=== PATIENT | male | born 1960 | race Caucasian/White ===

== ENCOUNTER 2020-03-11 07:49 | Outpatient (REF) | payer MEDICARE, MEDICAID, SELFPAY | END 2020-03-11 07:50 | disposition home or self-care (01) | LOC: HO.HAP 07:49 | PROVIDERS: PCP Internal Medicine; Referring Provider Internal Medicine; Visit Provider Internal Medicine | DX: H90.3 Sensorineural hearing loss, bilateral (principal) | CPT/HCPCS: 92593; 99499; V5266 ==

== ENCOUNTER 2020-07-09 08:19 | Outpatient (REF) | payer MEDICARE, MEDICAID, SELFPAY ==
--- NOTE | 2020-07-09 08:32 | MHC.AU.P13 ---
Hearing Instrument Maintenance Date of Visit: 07/09/20 Right Ear: Nematologist: Phonak Model: BOLERO V50M BTE Serial Number: [id number] Repair Warranty: 12/13/2017 Battery Size: 312 Color: GRAPHITE FAYE Tubing: #2 SLIM TUBE Type of Dome: MEDIUM CLOSED Left Ear: Nematologist: Phonak Model: BOLERO V50M BTE Serial Number: [id number] RepairWarranty: 12/13/2017 Battery Size: 312 Color: GRAPHITE FAYE Tubing: #2 SLIM TUBE Type of Dome: MEDIUM CLOSED Follow-Up Summary: Patient brought in aids for cleaning. Cleaned aids, changed #2 slim tubes and medium closed domes, both now amplifying clearly. Recommendations: Recommendations: Hearing instrument follow-up or maintenance as needed. Signature: Provider: COURTNEY Blake
== END 2020-07-09 08:20 | disposition home or self-care (01) ==
LOC: HO.HAP 08:19
PROVIDERS: Visit Provider Internal Medicine
DX: Z46.1 Encounter for fitting and adjustment of hearing aid (principal)
CPT/HCPCS: 92593; 99499; V5266

== ENCOUNTER 2020-12-31 08:04 | Outpatient (REF) | payer MEDICARE, SELFPAY ==
--- NOTE | 2020-12-31 08:53 | MHC.AU.AHA ---
Adult Audiological Evaluation Date of Visit: 12/31/20 Reason for Appointment: History of hearing loss. Patient arrives to determine if there has been a change in hearing. He reports increased difficulty listening in the presence of background noise. Previous Hearing Test Results: At this clinic on 01/13/2018- Mild to moderate sensorineural hearing loss bilaterally Ear History: Recent Ear Pain: None Reported History of Ear Wax Buildup: None Reported Bothersome Tinnitus/Ringing/Noises in Ears: Both Ears Hearing Instrument History- Right Ear: Copy Worker: [employer] Model: Bigvest0M [employer] Serial Number: [id number] Battery Size: 312 Repair Warranty: 12/13/2017 Dispensed By: [facility] Date of Fittin09/25/2015 Hearing Instrument History- Left Ear: Copy Worker: [employer] Model: Bigvest0M [employer] Serial Number: [id number] Battery Size: 312 Warranty: 12/13/2017 Dispensed By: [facility] Date of Fittin09/25/2015 Otoscopy: Right Ear: Unremarkable Left Ear: Unremarkable Tympanometry: Tympanometry performed due to: To assess integrity of the middle ear system Right Ear: Normal Middle Ear System (Type A) Left Ear: Normal Middle Ear System (Type A) Hearing Evaluation: Transducer(s) Used: Insert Earphones Method: Conventional Audiometry Stimuli Used: Pure Tones Right Ear: Description of Hearing: Moderate to moderately-severe sensorineural hearing loss Left Ear: Description of Hearing: Moderate to moderately-severe sensorineural hearing loss Speech Recognition Threshold (SRT): Method Used: Monitored Live Voice Stimuli Used: Right Ear: 55 dBHL Left Ear: 55 dBHL Word Discrimination: Method: Recorded Lists Word Lists Used: W-22 Right Ear: 88% at 85 dBHL Left Ear: 80% at 85 dBHL Most Comfortable Level (MCL): Right Ear: 85 dBHL Left Ear: 85 dBHL Comparison: Compared to the most recent evaluation: Thresholds have decreased bilaterally. Recommendations: Audiological re-evaluation in one year. Hearing aid maintenance performed today. See Hearing Aid Evaluation report for more information. Diagnosis: Primary Diagnosis: H90.3 Bilateral Sensorineural Hearing Loss Signature: Provider: Frank Sandoval, [facility]
--- NOTE | 2020-12-31 08:58 | MHC.AU.HAS ---
Hearing Aid Evaluation Date of Visit: 12/31/20 Historical Information: Description of Hearing: Moderate to moderately-severe sensorineural hearing loss bilaterally Current personal amplification information, if applicable: Pair of Phonak Bolero V50M, obtained 09/25/2015 Summary: Patient was seen for audiological re-evaluation (see separate report for details). Hearing aid options discussed. Hearing Aid Prescription: Based on the individual?s shared listening needs, communication environments, dexterity, desire for connectivity, and personal preferences, the following prescription for amplification has been made: Right ear: Echo Vascular Technologist: Phonak Model: Audeo P70-R Battery Size: Rechargeable Color: P5 After School Program Director: 1M Left ear: Echo Vascular Technologist: Phonak Model: Audeo P70-R Battery Size: Rechargeable Color: P5 After School Program Director: 1M Action Taken/Action Needed: Prior authorization to be requested Medical Clearance to be requested from PCP/ENT Hearing Instrument Fitting to be scheduled when materials arrive Primary Diagnosis: H90.3 Bilateral Sensorineural Hearing Loss Signature: Provider: Frank Sandoval, [facility]
--- NOTE | 2020-12-31 09:01 | MHC.AU.MED ---
Medical Clearance for Hearing Instrumentation Date: 12/31/20 Patient Name: Lb Martinez Date of : 1960 Referring Provider: Edith Schwab NP We have seen your patient on 12/31/20 and have determined that they are a candidate for amplification (See accompanying report). Specifically, they would benefit from: Hearing aid use in both ears There is a statute that addresses Medical Evaluation Requirements prior to fitting a patient with a hearing aid. According to [place] statute [facility] CMR:6.03(1), (a) General. Except as provided in 265 CMR 6.03(1)(b), a director traffic and planning shall not sell a hearing aid unless the prospective user has presented to the director traffic and planning a written statement signed by a licensed physician that states that the patient's hearing loss has been medically evaluated and the patient may be considered a candidate for a hearing aid. The medical evaluation must have taken place within the preceding six months. Please note: Due to the [place] Statute referenced above, we cannot accept a signature other than that of a licensed physician. FARM EQUIPMENT OPERATOR and PA signatures cannot be accepted. I am in agreement with the above recommendation. There is no medical contraindication for hearing instrumentation. Physician Signature Date Physician Name (Printed)
== END 2020-12-31 08:05 | disposition home or self-care (01) ==
LOC: HO.SH 08:04
PROVIDERS: Visit Provider Nurse Practitioner Primary Care
DX: Z46.1 Encounter for fitting and adjustment of hearing aid (principal); H90.3 Sensorineural hearing loss, bilateral
CPT/HCPCS: 92557; 92567; 92591

== ENCOUNTER 2021-03-02 08:09 | Outpatient (REF) | payer MEDICARE, SELFPAY ==
--- NOTE | 2021-03-02 09:47 | MHC.AU.HFA ---
Hearing Instrument Fitting- Adult- Binaural Date of Visit: 03/02/21 Hearing Instruments Dispensed: Right Ear: Drop Hammer Set Up Operator: Phonak Model: Audeo P70-R Serial Number: [id number] Repair Warranty: 05/16/2024 Loss and Damage Warranty: 05/16/2024 Battery Size: Rechargeable Color: Champagne Doll Wig Hackler: 1M Type of Dome: Small Power Type of Wax Guard: CeruShield Left Ear: Drop Hammer Set Up Operator: Phonak Model: Audeo P70-R Serial Number: [id number] Repair Warranty: 05/16/2024 Loss and Damage Warranty: 05/16/2024 Battery Size: Rechargeable Color: Champagne Doll Wig Hackler: 1M Type of Dome: Small Power Type of Wax Guard: CeruShield Summary of Fitting: Target gain set to 100%. Feedback manager utilities run. Verifit performed and levels adjusted to better reach targets. Patient felt his voice was too loud- set Occlusion Compensation to Medium. Raised overall gain by 2 steps at patient request. Patient was pleased with the sound of the instruments, and reports that so far they sound better than his previous set. Hearing aid care and maintenance were discussed and demonstrated. Patient did not want the hearing aids paired to his phone at this time. If he would like them paired in the future, he is welcome to schedule an appointment for assistance. Recommendations: Patient is an experienced hearing aid user. He will call if follow-up is necessary. Diagnosis Code(s): Primary Diagnosis: H90.3 Bilateral Sensorineural Hearing Loss Signature: Provider: Frank Sandoval, [facility]-A
== END 2021-03-02 08:10 | disposition home or self-care (01) ==
LOC: HO.HAP 08:09
PROVIDERS: Visit Provider Internal Medicine
DX: Z46.1 Encounter for fitting and adjustment of hearing aid (principal); H90.3 Sensorineural hearing loss, bilateral
CPT/HCPCS: V5011; V5020; V5160; V5261